=== PATIENT | female | born 1950 | race Caucasian/White ===

== ENCOUNTER 2025-04-17 14:35 | Emergency (ER) | payer MEDICARE, BC ==
[~2025-04-17] VITALS: Ht 165.1 cm; Wt 71.3 kg
[2025-04-17] MEDS: OXYMETAZOLINE 0.05% NASAL SPRAY ONE (16:37)
[2025-04-17 16:48] VITALS: BP 180/89; TEMP 98; O2SAT 97
== END 2025-04-17 16:48 | disposition home or self-care (01) ==
LOC: EDBD 14:35 → M ED 14:35
DX: R04.0 Epistaxis (principal)